=== PATIENT | female | born 1985 | race Caucasian/White ===

== ENCOUNTER 2016-11-25 14:23 | Emergency (ER) | payer OTHER ==
[~2016-11-25] VITALS: Ht 175.3 cm; Wt 70.8 kg
[2016-11-25 14:26] VITALS: BP 132/84
== END 2016-11-25 14:56 | disposition home or self-care (01) ==
LOC: ED 14:23
DX: N39.0 Urinary tract infection, site not specified (principal); G43.909 Migraine, unspecified, not intractable, without status migrainosus

== ENCOUNTER 2017-04-03 22:47 | Emergency (ER) | payer OTHER ==
[2017-04-04 02:05] VITALS: BP 133/84
== END 2017-04-04 02:05 | disposition home or self-care (01) ==
LOC: ED 22:47
DX: G43.909 Migraine, unspecified, not intractable, without status migrainosus (principal)
CPT/HCPCS: J1885; J2765; J3030; Q0163

== ENCOUNTER 2017-08-06 12:08 | Emergency (ER) | payer OTHER ==
[~2017-08-06] VITALS: Ht 157.5 cm; Wt 72.7 kg
[2017-08-06 12:28] VITALS: Ht 157.5 cm; Wt 72.7 kg
[2017-08-06 13:29] LABS: BASOPHIL % 0.3 % (0-2); PLATELET COUNT 273 x10^3mcL (130-400)
[2017-08-06 14:17] LABS: CALCIUM 8.7 mg/dL (8.5-10.1); CARBON DIOXIDE 27.2 mmol/L (21-32); CHLORIDE SERUM 104 mmol/L (98-107); CREATININE SERUM 0.7 mg/dL (0.6-1.0); GFR1 > 60 mL/min; GLUCOSE SERUM 101 mg/dL (74-106); POTASSIUM SERUM 4.1 mmol/L (3.5-5.1); SODIUM SERUM 139 mmol/L (136-145)
[2017-08-06 14:22] LABS: ALBUMIN 3.6 g/dL (3.4-5.0); ALKALINE PHOSPHATASE 117 U/L (46-116); ALT/SGPT 81 U/L (14-59); AMYLASE 66 U/L (25-115); AST/SGOT 50 U/L (15-37); BILIRUBIN TOTAL 0.4 mg/dL (0.20-1.00); LIPASE 77 IU/L (73-393); TOTAL PROTEIN, SERUM 7.8 g/dL (6.4-8.2)
[2017-08-06 15:30] VITALS: BP 107/74
== END 2017-08-06 15:30 | disposition home or self-care (01) ==
LOC: ED 12:08
PROVIDERS: Emergency Medicine
DX: R10.13 Epigastric pain (principal); R11.2 Nausea with vomiting, unspecified; R19.7 Diarrhea, unspecified; G43.909 Migraine, unspecified, not intractable, without status migrainosus; Z88.6 Allergy status to analgesic agent
CPT/HCPCS: 36415; 83880; J3010; Q0162

== ENCOUNTER 2017-10-28 14:34 | Emergency (ER) | payer OTHER ==
[~2017-10-28] VITALS: Ht 167.6 cm; Wt 70.8 kg
[2017-10-28 15:02] VITALS: Ht 167.6 cm; Wt 70.8 kg
[2017-10-28 17:33] VITALS: BP 130/73
== END 2017-10-28 17:33 | disposition home or self-care (01) ==
LOC: ED 14:34
DX: G43.909 Migraine, unspecified, not intractable, without status migrainosus (principal); Z88.8 Allergy status to other drugs, medicaments and biological substances
CPT/HCPCS: J1885; J2765

== ENCOUNTER 2018-09-04 13:43 | Emergency (ER) | payer OTHER ==
[~2018-09-04] VITALS: Ht 170.2 cm; Wt 71.4 kg
[2018-09-04 14:20] VITALS: Ht 170.2 cm; Wt 71.4 kg
[2018-09-04 15:52] VITALS: BP 122/67
== END 2018-09-04 15:55 | disposition home or self-care (01) ==
LOC: ED 13:43
DX: G43.909 Migraine, unspecified, not intractable, without status migrainosus (principal); K80.20 Calculus of gallbladder without cholecystitis without obstruction; Z88.8 Allergy status to other drugs, medicaments and biological substances
CPT/HCPCS: J1885; J2765

== ENCOUNTER 2018-12-16 11:55 | Emergency (ER) | payer OTHER ==
[~2018-12-16] VITALS: Ht 167.6 cm; Wt 69.4 kg
[2018-12-16 12:13] VITALS: Ht 167.6 cm; Wt 69.4 kg
[2018-12-16 17:55] VITALS: BP 130/68
== END 2018-12-16 17:55 | disposition home or self-care (01) ==
LOC: ED 11:55
DX: G43.909 Migraine, unspecified, not intractable, without status migrainosus (principal); K59.00 Constipation, unspecified
CPT/HCPCS: J0780; J1200